=== PATIENT | male | born 1985 | race Caucasian/White ===

== ENCOUNTER 2022-03-16 20:53 | Emergency (ER) | payer OTHER, SELFPAY ==
--- NOTE | ~2022-03-16 | XR_ITS ---
EXAMINATION: XR hand wrist RT CLINICAL INFORMATION: Reason for Exam laceration COMPARISON: None. TECHNIQUE: 3 views right hand FINDINGS: Overlying bandaging and a small amount soft tissue gas are seen at the volar aspect of the wrist. Correlate with exam. No radiodense foreign body identified. No fracture or dislocation is seen. The joint spaces are maintained. XR/XR hand wrist RT IMPRESSION: 1. No acute osseous injury. No radiodense foreign body.
--- NOTE | 2022-03-16 21:24 | ED.SKABFB ---
HPI - Skin/Abscess/Foreign Bdy General Chief complaint: Extremity Injury, Upper <FUAD Jenkins - Last Filed: 03/16/22 21:29> Stated complaint: R hand lac <FUAD Jenkins - Last Filed: 03/16/22 21:29> Time Seen by Provider: 03/16/22 21:50 <FUAD Jenkins - Last Filed: 03/16/22 21:29> Source: patient <Shell Childers NP - Last Filed: 03/17/22 02:24> Mode of arrival: ambulatory <Shell Childers NP - Last Filed: 03/17/22 02:24> Limitations: no limitations <Shell Childers NP - Last Filed: 03/17/22 02:24> History of Present Illness HPI narrative: 36-year-old male presents with a laceration to his right wrist. Patient accidentally stabbed himself with a knife while he was cutting chicken. <Shell Childers NP - Last Filed: 03/17/22 02:24> MD complaint: laceration <Shell Childers NP - Last Filed: 03/17/22 02:24> Onset (ago): hour(s) (Within the hour of arrival) <Shell Childers NP - Last Filed: 03/17/22 02:24> Tetanus up to date: unsure <Shell Childers NP - Last Filed: 03/17/22 02:24> Location: RUE <Shell Childers NP - Last Filed: 03/17/22 02:24> Severity: severe <Shell Childers NP - Last Filed: 03/17/22 02:24> Treatments prior to arrival: bandages <Shell Childers NP - Last Filed: 03/17/22 02:24> Related Data Allergies/Adverse reactions: Allergies Allergy/AdvReac Type Severity Reaction Status Date / Time No Known Allergies [NKA] Allergy Mild NKA Unverified 12/06/19 17:16 <FUAD Jenkins - Last Filed: 03/16/22 21:29> Review of Systems Review of Systems: Constitutional: No Fever, No Chills Cardiovascular: No Chest Pain, No SOB Respiratory: No Cough, No Dyspnea Gastrointestinal: No Nausea, No Vomiting, No Diarrhea, No abdominal Pain Musculoskeletal: positive right wrist pain, No Myalgias, No Joint Swelling Skin: Positive deep laceration to wrist with arterial bleed Neuro: No Weakness, No Numbness, No Paresthesias <Shell Childers NP - Last Filed: 03/17/22 02:24> Yes all other systems are reviewed and are negative <Shell Childers NP - Last Filed: 03/17/22 02:24> [facility] Past Medical History Attestation statement: The following information was validated with the patient. <Shell Childers NP - Last Filed: 03/17/22 02:24> Source: old records reviewed <Shell Childers NP - Last Filed: 03/17/22 02:24> Social History Social History: Social History Advance Directives: No Advance Directives Information Provided: No <FUAD Jenkins - Last Filed: 03/16/22 21:29> Physical Exam Vital Signs: Vital Signs: Last Vital Signs Temp 97.8 F 03/16/22 23:09 Pulse 70 03/16/22 23:09 Resp 16 03/16/22 23:09 BP 114/76 03/16/22 23:09 Pulse Ox 97 03/16/22 23:09 O2 Del Method 03/16/22 23:09 BMI result Body Mass Index 27.8 <FUAD Jenkins - Last Filed: 03/16/22 21:29> Vital Signs: Last Vital Signs Temp 97.8 F 03/16/22 23:09 Pulse 70 03/16/22 23:09 Resp 16 03/16/22 23:09 BP 114/76 03/16/22 23:09 Pulse Ox 97 03/16/22 23:09 O2 Del Method 03/16/22 23:09 BMI result Body Mass Index 27.8 <Shell Childers NP - Last Filed: 03/17/22 02:24> Appearance: Alert. Oriented X3. No acute distress. Eyes: Pupils equal, round and reactive to light. ENT: Pharynx normal. Neck: Normal inspection. Neck supple. CVS: Normal heart rate and rhythm. Pulses normal. Respiratory: No respiratory distress. Breath sounds normal. Abdomen: Soft and nontender. Skin: 2 cm laceration to the right wrist, deep, arterial bleed Extremities: Brisk capillary refill equal pulses. Neuro: No motor deficit. No sensory deficit. Cranial nerves 2-12 intact <Shell Childers NP - Last Filed: 03/17/22 02:24> Course Course Course Narrative: 2[age] year old male presents w/ puncture to right dorsal aspect of hand. Patient reports blood is squirting. Happened just prior to arrival when he was cutting chicken. Patient left handed. Unsure of tetanus status. Patient feels dizzy PE- arterial punture wound to right hand Plan- bring straight back. <FUAD Jenkins - Last Filed: 03/16/22 21:29> [age] year old male presents w/ puncture to right dorsal aspect of hand. Patient reports blood is squirting. Happened just prior to arrival when he was cutting chicken. Patient left handed. Unsure of tetanus status. Patient feels dizzy PE- arterial punture wound to right hand Plan- bring straight back. 36-year-old male presents with stab wound to the right wrist from a kitchen knife while cutting chicken. Patient was brought directly back as soon as he presented to the emergency department because the amount of bleeding. He does have an arterial bleed, suspected to be the ulnar arch of the right wrist. Dr. Peres at bedside to assist with ligating the vessel. Six internal sutures were placed by Dr. Peres, bleeding was well controlled after the sutures were placed. Five external sutures were placed by this [employer] OPERATOR. Will monitor this patient for approximately 1 hour to ensure hemostasis. 23:00 patient continues with brisk capillary refill, full range of motion to all digits. Neurovascularly intact. No indication of bleeding or bruising to the site. Patient understands that he must follow up with Dr. Suh, hand surgeon for further care. Tdap was updated today. No swelling or ecchymosis noted consistent with bleeding. Patient has full range of motion to digits. Patient does understand the detailed directions given for compartment syndrome. Patient verbalized understanding of and agrees to plan of care discharge home. Verbalized understanding of signs symptoms indicating need for emergent intervention. <Shell Childers NP - Last Filed: 03/17/22 02:24> Medications Administered Discontinued Medications Generic Name Dose Route Start Last Admin Trade Name Freq PRN Reason Stop Dose Admin Diphtheria/Tetanus/Acell Pertussis 0.5 ml 03/16/22 21:26 03/16/22 22:04 Diphth,Pertus(Acell),Tet Adult 0.5 Ml Syringe IM 03/16/22 21:27 0.5 ml .ONCE ONE Administration Lidocaine/Epinephrine 30 ml 03/16/22 23:08 03/16/22 23:13 Lidocaine Hcl 1% Pf/Epi 1:200,000 30 Ml Vial INFILTRATI 03/16/22 23:09 30 ml ONCE ONE Administration <FUAD Jenkins - Last Filed: 03/16/22 21:29> Medications Administered Discontinued Medications Generic Name Dose Route Start Last Admin Trade Name Freq PRN Reason Stop Dose Admin Diphtheria/Tetanus/Acell Pertussis 0.5 ml 03/16/22 21:26 03/16/22 22:04 Diphth,Pertus(Acell),Tet Adult 0.5 Ml Syringe IM 03/16/22 21:27 0.5 ml .ONCE ONE Administration Lidocaine/Epinephrine 30 ml 03/16/22 23:08 03/16/22 23:13 Lidocaine Hcl 1% Pf/Epi 1:200,000 30 Ml Vial INFILTRATI 03/16/22 23:09 30 ml ONCE ONE Administration <Shell Childers NP - Last Filed: 03/17/22 02:24> Medical Decision Making Differential Diagnosis Differential Diagnoses: The differential diagnosis associated with the presentation includes <Shell Childers NP - Last Filed: 03/17/22 02:24> Admission/Observation Consideration of admission/observation: Escalation of care including admission/observation considered <Shell Childers NP - Last Filed: 03/17/22 02:24> If bleeding is not controlled with hemostasis measures, will transfer to trauma center <Shell Childers NP - Last Filed: 03/17/22 02:24> Independent Interpretation I performed an independent interpretation of an: Plain X-Ray <Shell Childers NP - Last Filed: 03/17/22 02:24> Radiology Impression Discussion of test interpretation with radiology: I have reviewed the radiologist's reading. <Shell Childers NP - Last Filed: 03/17/22 02:24> Radiologist Impression: EXAMINATION: XR hand wrist RT CLINICAL INFORMATION: Reason for Exam laceration COMPARISON: None. TECHNIQUE: 3 views right hand FINDINGS: Overlying bandaging and a small amount soft tissue gas are seen at the volar aspect of the wrist. Correlate with exam. No radiodense foreign body identified. No fracture or dislocation is seen. The joint spaces are maintained. XR/XR hand wrist RT IMPRESSION: ? 1. No acute osseous injury. No radiodense foreign body. <Shell Childers NP - Last Filed: 03/17/22 02:24> Discharge Plan Discharge Clinical Impression: Laceration of left wrist, Laceration of ulnar artery at wrist and hand level of right arm, initial encounter <FUAD Jenkins - Last Filed: 03/16/22 21:29> Patient Disposition: Home, Self-Care <FUAD Jenkins - Last Filed: 03/16/22 21:29> Instructions: Laceration (ED), Compartment Syndrome (DC) <FUAD Jenkins - Last Filed: 03/16/22 21:29> Additional Instructions: You were evaluated for deep laceration to the right wrist. It is suspected that the ulnar arch artery was cut during this injury. We placed 6 internal sutures and 5 external sutures. Please follow-up with Kaylin Suh MD, she is a hand surgeon. Please call tomorrow and request an appointment for evaluation Do not do anything physically strenuous with this hand until you are evaluated by the hand surgeon. Your Tdap vaccine was updated If you notice any loss of sensation, loss of range of motion, or decrease in capillary refill please return to the emergency department immediately as this may be a sign of compartment syndrome. I did give you the instructions of compartment syndrome please understand and read these instructions. You do not have compartment syndrome, but is very important that you understand signs and symptoms indicating need for emergent intervention. Thank you for choosing this emergency department for evaluation. Please follow-up with primary care physician as needed. Return to the emergency department for any new, concerning, or worsening symptoms. <FUAD Jenkins - Last Filed: 03/16/22 21:29> Referrals: Kaylin Suh MD [Physician] - 1 day (Wrist laceration with suspected ulnar arch artery laceration) <FUAD Jenkins - Last Filed: 03/16/22 21:29> Stand Alone Forms: Work/School Release <FUAD Jenkins - Last Filed: 03/16/22 21:29> Interventions: ED Discharge Assessment Last Done: 03/16/22 23:18 <FUAD Jenkins - Last Filed: 03/16/22 21:29> Discharge Date/Time: 03/16/22 23:19 <FUAD Jenkins - Last Filed: 03/16/22 21:29>
[2022-03-16 21:30] VITALS: BP 154/91; PULSE 86; RESP 18; TEMP 37.3; O2SAT 99; BMI 27.8
[2022-03-16] MEDS: Diphth,Pertus(ACell),Tet Adult 0.5 ML SYRINGE IM (22:04)
--- NOTE | 2022-03-16 22:04 | PC.NURSE ---
Dtap form given to patient.
--- NOTE | 2022-03-16 22:37 | PC.NURSE ---
pt came into triage with laceration to the right hand. Bleeding controlled. pt medicated per may. FUAD Goff at the bedside to repairing laceration. pt able to move digits and has cms, plus pulses. Reported to FLORES Del Toro
[2022-03-16 23:09] VITALS: BP 114/76; PULSE 70; RESP 16; TEMP 36.6; O2SAT 97
[2022-03-16] MEDS: Lidocaine HCl 1% PF/Epi 1:200,000 30 ML VIAL INFILTRATI (23:13)
== END 2022-03-16 23:19 | disposition home or self-care (01) ==
PROVIDERS: Emergency Provider Internal Medicine
DX: S61.511A Laceration without foreign body of right wrist, initial encounter (principal); S50.812A Abrasion of left forearm, initial encounter; S50.811A Abrasion of right forearm, initial encounter; T79.A12A Traumatic compartment syndrome of left upper extremity, initial encounter; W26.0XXA Contact with knife, initial encounter; Y93.9 Activity, unspecified; Y92.009 Unspecified place in unspecified non-institutional (private) residence as the place of occurrence of the external cause; Y99.9 Unspecified external cause status; Z79.899 Other long term (current) drug therapy; Z23 Encounter for immunization
CPT/HCPCS: 12032; 73110; 73130; 90471; 90715; 99282; 99284

== ENCOUNTER 2022-03-18 17:04 | Outpatient (REF) | payer OTHER, SELFPAY | END 2022-03-18 17:05 | disposition home or self-care (01) | LOC: HO.HOSX 17:04 | PROVIDERS: Visit Provider Physician Assistant | DX: S61.512A Laceration without foreign body of left wrist, initial encounter (principal) | CPT/HCPCS: 99212 ==

== ENCOUNTER 2023-04-28 13:17 | Emergency (ER) | payer OTHER, SELFPAY ==
[2023-04-28 13:55] VITALS: BP 115/81; PULSE 69; RESP 20; TEMP 36.4; O2SAT 99; BMI 30.1
--- NOTE | 2023-04-28 13:59 | ED.HEATRA ---
HPI - Head Injury General Chief complaint: General Medical Stated complaint: head injury @ work 04/27 Time Seen by Provider: 04/28/23 14:02 Source: patient Mode of arrival: ambulatory Limitations: no limitations History of Present Illness HPI Narrative: 37 year old male with no significant past medical history presents to the emergency department after sustaining an injury to his neck and upper back while at work. He states that boxes of varying sizes fell onto his posterior neck and upper shoulders. He denies any falls, LOC, headache, or vision changes. He denies any paresthesias or weakness Related Data Home Medications Medication Instructions Recorded Confirmed No Known Home Meds 03/18/22 03/18/22 Allergies Allergy/AdvReac Type Severity Reaction Status Date / Time No Known Allergies [NKA] Allergy Mild NKA Verified 03/18/22 09:31 Review of Systems Review of Systems: Yes all other systems are reviewed and are negative Physical Exam Vital Signs: Vital Signs: Last Vital Signs Temp 97.5 F 04/28/23 13:55 Pulse 69 04/28/23 13:55 Resp 20 04/28/23 13:55 BP 115/81 04/28/23 13:55 Pulse Ox 99 04/28/23 13:55 O2 Del Method Room Air 04/28/23 13:55 BMI result Body Mass Index 30.1 Nursing notes and vital signs reviewed. GENERAL APPEARANCE: A&0 x 4, generally well appearing, no acute distress HENMT: Normal to inspection, atraumatic, face symmetrical. Normal external ears, nose, and oropharynx clear. EYE: PERRLA, EOM intact, structures appear normal NECK: Supple without stiffness or restricted ROM. HEART: Normal rate and regular rhythm, normal S1/S2, no M/R/G LUNGS: LS CTA, moving air well. Able to speak in complete sentences. No crackles, wheezes, or rhonchi auscultated BACK: No CVAT, no obvious deformity EXTREMITIES: Moving all extremities without difficulty. Normal capillary refill. NEUROLOGICAL: Alert and oriented, moving all 4 extremities with equal strength. CN not formally tested but appearing grossly intact. Observed to ambulate with normal gait. Cognition normal SKIN: Warm and dry without any lesions, rash, or visible sores Medical Decision Making Medical Decision Making MDM Narrative: Old records reviewed for previous imaging, lab studies, ECGs, and notes. Patient was assessed the emergency department with no acute distress or toxicity noted. Patient's symptoms are consistent with an acute contusion of the neck and shoulders with low suspicion for fractures, dislocations, or nerve injury. .Patient is safe for discharge at this time with plan for [id number] Tylenol and/or NSAID such as ibuprofen or naproxen for fever/discomfort with dosing as per packaging. HPI, PE, diagnostics, and plan discussed with patient and family with no unanswered questions at this time. Strict return precautions given to return to the emergency department with new, worsening, or concerning emergent symptoms. Recommended to follow-up with there primary care provider in 24-48 hours for further treatment and management. Differential Diagnosis Differential Diagnoses: The differential diagnosis associated with the presentation includes But not limited to fracture, dislocation, spinal cord injury, infection, malignancy Discharge Plan Discharge Clinical Impression: Contusion of head and neck region Patient Disposition: Home, Self-Care Instructions: Contusion in Adults (ED), Ice Pack Application (ED) Additional Instructions: Your seen in the emergency department for evaluation after a work injury. There was no evidence of fractures, dislocations, or nerve injury. You are safe for discharge at this time with plan for management of fever or discomfort with [id number] Tylenol and/or NSAID such as ibuprofen or naproxen with dosing as per packaging. Please return to the emergency department with new, worsening, or concerning emergent symptoms. Recommended to follow-up with your primary care provider in 24-48 hours for further treatment and management. Thank you for choosing [facility]. Prescriptions: No Action No Known Home Meds Referrals: [facility] [place] [facility] [place] Group] [facility] [place] [facility]] [facility] [place] [facility]] Stand Alone Forms: Work/School Release Print Language: Syriac
== END 2023-04-28 14:19 | disposition home or self-care (01) ==
PROVIDERS: Emergency Provider Emergency Medicine
DX: S10.93XA Contusion of unspecified part of neck, initial encounter (principal); S00.93XA Contusion of unspecified part of head, initial encounter; Y29.XXXA Contact with blunt object, undetermined intent, initial encounter; Y93.9 Activity, unspecified; Y92.9 Unspecified place or not applicable; Y99.0 Civilian activity done for income or pay
CPT/HCPCS: 99282